=== PATIENT | male | born 1940 | race Caucasian/White ===

== ENCOUNTER 2023-10-10 15:02 | Observation (INO) | payer MEDICARE, OTHER ==
[2023-10-10] MEDS ORDERED: Sodium Chloride 0.9% 10 ML Syringe FLUSH PRN (15:06)
[2023-10-10 15:46] LABS: BLOOD UREA NITROGEN,BUN 29 mg/dL (7-18); BUN/CREATININE RATIO 15.3 (9-20); CALCIUM 8.2 mg/dL (8.6-10.2); CARBON DIOXIDE,CO2 24 mmol/L (21-32); CHLORIDE,CL 108 mmol/L (100-110); CREATININE 1.9 mg/dL (0.70-1.30); ESTIMATED GFR 35 mL/min (>60); GLUCOSE RANDOM 156 mg/dL (80-116); POTASSIUM,K 4.5 mmol/L (3.5-5.3); SODIUM,NA 141 mmol/L (135-145)
[2023-10-10 15:47] LABS: BASOPHILS ABSOLUTE AUTO 0.1 x10-3/uL (0.0-0.3); BASOPHILS PERCENT AUTO 1.1 % (0.3-3.8); EOSINOPHILS ABSOLUTE AUTO 0.2 x10-3/uL (0.0-0.6); EOSINOPHILS PERCENT AUTO 1.8 % (0.1-6.8); HEMATOCRIT 29.8 % (38.3-50.1); HEMOGLOBIN 9.9 g/dL (12.9-17.7); LYMPHOCYTES ABSOLUTE AUTO 3.5 x10-3/uL (0.5-4.5); LYMPHOCYTES PERCENT AUTO 31.4 % (15.8-45.3); MEAN CORPUSCULAR HEMOGLOBIN 27.9 pg (27.0-33.3); MEAN CORPUSCULAR HGB CONC 33.1 g/dL (28.7-35.3); MEAN CORPUSCULAR VOLUME 84.1 fL (80.8-98.7); MEAN PLATELET VOLUME 9.4 fL (6.7-11.0); MONOCYTES ABSOLUTE AUTO 0.7 x10-3/uL (0.0-1.2); MONOCYTES PERCENT AUTO 6.4 % (5.5-15.2); NEUTROPHILS ABSOLUTE AUTO 6.6 x10-3/uL (1.7-6.9); NEUTROPHILS PERCENT AUTO 59.3 % (40.3-71.8); PLATELET COUNT,PLT 186 x10(3)uL (117-477); RED BLOOD CELL COUNT 3.54 x10(6)uL (3.90-5.90); WHITE BLOOD CELL COUNT,WBC 11.1 x10-3/uL (3.2-10.1)
[2023-10-10 15:52] LABS: INR 1.07 (1.00-1.24); PTT,PARTIAL THROMBOPLSTIN TIME 23.1 SECONDS (24.4-33.2)
[2023-10-10 15:53] LABS: A/G RATIO 0.7; ALANINE AMINOTRANSFERASE,ALT 22 U/L (12-36); ALBUMIN 2.6 g/dL (3.2-4.6); ALKALINE PHOSPHATASE 119 IU/L (56-112); ASPARTATE AMNIOTRANSFERASE,AST 16 IU/L (5-25); BILIRUBIN TOTAL 0.3 mg/dL (0.1-1.3); PROTEIN TOTAL,TP 6.3 g/dL (6.0-8.0)
[2023-10-10] MEDS: Sodium Chloride 0.9% 1,000 ML IV SCH ×3 (15:55→22:34)
[2023-10-10] MEDS: Ondansetron 4 MG/2 ML SDV IVPUSH ONE (16:02)
[2023-10-10] MEDS ORDERED: Sodium Chloride 0.9% 1,000 ML IV SCH ×2 (17:30→19:15)
[2023-10-10] MEDS ORDERED: Acetaminophen 325 MG Tab PO PRN (19:40)
[2023-10-10] MEDS ORDERED: Ondansetron 4 MG/2 ML SDV IV PRN (19:40)
[2023-10-10] MEDS ORDERED: Sennosides/Docusate Sodium 50-8.6 MG Tab PO PRN (19:40)
[2023-10-10] MEDS ORDERED: Cyanocobalamin (Vitamin B12) 1,000 MCG Tab PO SCH (20:00)
[2023-10-10 20:36] VITALS: PULSE 67
[2023-10-10] MEDS ORDERED: Lidocaine 1% 5 ML VIAL INFILT ONE (20:43)
[2023-10-10] MEDS: atorvaSTATin 40 MG Tab PO SCH (22:00)
[2023-10-10] MEDS: Gabapentin 300 MG Cap PO SCH (22:01)
[2023-10-10] MEDS: Losartan 50 MG Tab PO SCH (22:01)
[2023-10-10] MEDS: Donepezil 5 MG Tab PO SCH (22:01)
[2023-10-10 22:02] VITALS: BP 134/60
[2023-10-10] MEDS: Carboxymethylcellulose 0.5%/Glycerin 0.9% Ophth Soln 15 ML Bottle EYEBOTH SCH (23:22)
[2023-10-11] MEDS ORDERED: Non-Formulary Medication 1 Each (Dapagliflozin Propanediol [Farxiga] 10 MG Tablet) PO SCH (09:00)
[2023-10-11] MEDS ORDERED: Non-Formulary Medication 1 Each (Insulin Degludec [Tresiba Flextouch U-100] 100 UNIT/ML Pe SQ SCH (09:00)
[2023-10-11] MEDS ORDERED: Non-Formulary Medication 1 Each (Insulin Detemir [Levemir] 100 UNIT/ML Ml) SQ SCH (09:00)
[2023-10-11] MEDS ORDERED: Psyllium Husk Powder Sugar Free 5.85 GM Packet PO SCH (09:00)
[2023-10-11] MEDS ORDERED: Aspirin 81 MG Tab.EC PO SCH (09:00)
[2023-10-11] MEDS ORDERED: amLODIPine 2.5 MG Tab PO SCH (09:00)
[2023-10-11] MEDS ORDERED: Empagliflozin 25 MG Tab PO SCH (09:00)
[2023-10-11] MEDS ORDERED: Psyllium Husk Powder Sugar Free 5.85 GM Packet PO PRN (11:10)
[2023-10-11] MEDS ORDERED: Calcium Carbonate 500 MG Tab.Chew PO PRN (11:12)
[2023-10-11 11:13] LABS: BASOPHILS ABSOLUTE AUTO 0.1 x10-3/uL (0.0-0.3); BASOPHILS PERCENT AUTO 0.6 % (0.3-3.8); EOSINOPHILS ABSOLUTE AUTO 0.1 x10-3/uL (0.0-0.6); EOSINOPHILS PERCENT AUTO 0.9 % (0.1-6.8); HEMATOCRIT 23.8 % (38.3-50.1); HEMOGLOBIN 7.9 g/dL (12.9-17.7); LYMPHOCYTES ABSOLUTE AUTO 1.9 x10-3/uL (0.5-4.5); LYMPHOCYTES PERCENT AUTO 21.7 % (15.8-45.3); MEAN PLATELET VOLUME 9.4 fL (6.7-11.0); MONOCYTES ABSOLUTE AUTO 0.5 x10-3/uL (0.0-1.2); MONOCYTES PERCENT AUTO 5.9 % (5.5-15.2); NEUTROPHILS ABSOLUTE AUTO 6.4 x10-3/uL (1.7-6.9); NEUTROPHILS PERCENT AUTO 70.9 % (40.3-71.8); PLATELET COUNT,PLT 117 x10(3)uL (117-477); RED BLOOD CELL COUNT 2.81 x10(6)uL (3.90-5.90); RED CELL DISTRIBUTION WIDTH 15.2 % (12.4-15.0)
[2023-10-11 11:14] LABS: BLOOD UREA NITROGEN,BUN 32 mg/dL (7-18); CARBON DIOXIDE,CO2 25 mmol/L (21-32); CHLORIDE,CL 109 mmol/L (100-110); GLUCOSE RANDOM 157 mg/dL (80-116); POTASSIUM,K 4.5 mmol/L (3.5-5.3); SODIUM,NA 141 mmol/L (135-145)
[2023-10-11 11:15] LABS: A/G RATIO 0.8; ALANINE AMINOTRANSFERASE,ALT 20 U/L (12-36); ALBUMIN 2.5 g/dL (3.2-4.6); ALKALINE PHOSPHATASE 108 IU/L (56-112); ASPARTATE AMNIOTRANSFERASE,AST 16 IU/L (5-25); BILIRUBIN TOTAL 0.3 mg/dL (0.1-1.3); CALCIUM 7.6 mg/dL (8.6-10.2); EST CRCL DRUG DOSING (CG) 34.62 mL/min; ESTIMATED GFR 33 mL/min (>60); PROTEIN TOTAL,TP 5.8 g/dL (6.0-8.0)
[2023-10-11] MEDS ORDERED: Heparin Sodium/0.45% NaCl 25,000 UNITS/500 ML BAG IV SCH (11:15)
[2023-10-11] MEDS ORDERED: Calcium Carbonate 500 MG Tab.Chew ONE (11:59)
[2023-10-11] MEDS ORDERED: Insulin Glargine,Human Rec. Analog 100 Units/ML 3 ML Pen SUBCUT ONE (14:08)
[2023-10-11] MEDS ORDERED: Insulin Lispro 100 Unit/ML 3 ML KwikPen SUBCUT ONE (14:08)
[2023-10-11] MEDS: Carvedilol 3.125 MG Tab PO SCH (15:19)
[2023-10-11] MEDS: Insulin Lispro 100 Unit/ML 3 ML KwikPen SUBCUT SCH (15:19)
[2023-10-11] MEDS: Pantoprazole 40 MG Tab.CR PO SCH (15:20)
[2023-10-11] MEDS: Cholecalciferol (Vitamin D3) 25 MCG Tab PO SCH (15:20)
[2023-10-11] MEDS: Saccharomyces Boulardii (Probiotic) 250 MG Cap PO SCH (15:20)
[2023-10-11] MEDS: Insulin Glargine,Human Rec. Analog 100 Units/ML 3 ML Pen SUBCUT SCH (15:20)
[2023-10-11] MEDS: Aspirin 81 MG Tab.Chew PO ONE (15:21)
[2023-10-11] MEDS: Heparin Sodium 5,000 Units/ML Vial IVPUSH ONE (15:21)
[2023-10-11] MEDS: Allopurinol 100 MG Tab PO SCH (15:21)
[2023-10-11] MEDS: TRINTELLIX 5 MG PO SCH (15:21)
[2023-10-11] MEDS ORDERED: amLODIPine 10 MG Tab PO SCH (21:00)
[2023-10-11] MEDS ORDERED: Loratadine 10 MG Tab PO SCH (21:00)
== END 2023-10-11 14:09 ==
LOC: FB.ED 15:02 → FB.MS 20:42
PROVIDERS: ADMIT Emergency Medicine; ATTEND Family Medicine
DX: S01.81XA Laceration without foreign body of other part of head, initial encounter (principal); E11.22 Type 2 diabetes mellitus with diabetic chronic kidney disease; I12.9 Hypertensive chronic kidney disease with stage 1 through stage 4 chronic kidney disease, or unspecified chronic kidney disease; N18.32 Chronic kidney disease, stage 3b; I25.110 Atherosclerotic heart disease of native coronary artery with unstable angina pectoris; D64.9 Anemia, unspecified; I25.2 Old myocardial infarction; W18.30XA Fall on same level, unspecified, initial encounter; Z95.1 Presence of aortocoronary bypass graft
CPT/HCPCS: 12002; 36415; 70450; 71045; 72125; 80053; 82947; 84484; 85025; 85610; 85730; 93005; 96361; 96374; 99285; A9270; G0378; J1644; J1815; J2405; J7030; 99222; 99238

== ENCOUNTER 2024-01-06 20:41 | Emergency (ER) | payer MEDICARE, OTHER ==
[2024-01-06 21:15] LABS: BASOPHILS ABSOLUTE AUTO 0.1 x10-3/uL (0.0-0.3); BASOPHILS PERCENT AUTO 0.8 % (0.3-3.8); EOSINOPHILS ABSOLUTE AUTO 0.1 x10-3/uL (0.0-0.6); EOSINOPHILS PERCENT AUTO 1.7 % (0.1-6.8); HEMATOCRIT 38.9 % (38.3-50.1); HEMOGLOBIN 13.2 g/dL (12.9-17.7); LYMPHOCYTES ABSOLUTE AUTO 1.6 x10-3/uL (0.5-4.5); LYMPHOCYTES PERCENT AUTO 24.2 % (15.8-45.3); MEAN CORPUSCULAR HEMOGLOBIN 29.3 pg (27.0-33.3); MEAN CORPUSCULAR VOLUME 86.3 fL (80.8-98.7); MEAN PLATELET VOLUME 9.5 fL (6.7-11.0); MONOCYTES ABSOLUTE AUTO 0.4 x10-3/uL (0.0-1.2); MONOCYTES PERCENT AUTO 6.1 % (5.5-15.2); NEUTROPHILS ABSOLUTE AUTO 4.5 x10-3/uL (1.7-6.9); NEUTROPHILS PERCENT AUTO 67.2 % (40.3-71.8); PLATELET COUNT,PLT 102 x10(3)uL (117-477); RED BLOOD CELL COUNT 4.51 x10(6)uL (3.90-5.90); RED CELL DISTRIBUTION WIDTH 15.8 % (12.4-15.0); WHITE BLOOD CELL COUNT,WBC 6.6 x10-3/uL (3.2-10.1)
[2024-01-06 21:16] LABS: BLOOD UREA NITROGEN,BUN 29 mg/dL (7-18); BUN/CREATININE RATIO 19.3 (9-20); CALCIUM 8.7 mg/dL (8.6-10.2); CARBON DIOXIDE,CO2 26 mmol/L (21-32); CHLORIDE,CL 104 mmol/L (100-110); CREATININE 1.5 mg/dL (0.70-1.30); ESTIMATED GFR 46 mL/min (>60); GLUCOSE RANDOM 235 mg/dL (80-116); POTASSIUM,K 3.9 mmol/L (3.5-5.3); SODIUM,NA 140 mmol/L (135-145)
[2024-01-06 21:22] LABS: A/G RATIO 0.8; ALANINE AMINOTRANSFERASE,ALT 42 U/L (12-36); ALBUMIN 3.3 g/dL (3.2-4.6); ALKALINE PHOSPHATASE 151 IU/L (56-112); ASPARTATE AMNIOTRANSFERASE,AST 25 IU/L (5-25); BILIRUBIN TOTAL 0.3 mg/dL (0.1-1.3); PROTEIN TOTAL,TP 7.4 g/dL (6.0-8.0)
[2024-01-06] MEDS: Metoprolol Tartrate 5 MG/5 ML SDV IVPUSH ONE (21:59)
[2024-01-06 22:06] VITALS: BP 203/108; PULSE 90
== END 2024-01-06 23:47 | disposition home or self-care (01) ==
LOC: FB.ED 20:41
DX: J44.9 Chronic obstructive pulmonary disease, unspecified (principal); S01.511A Laceration without foreign body of lip, initial encounter; I10 Essential (primary) hypertension; E10.9 Type 1 diabetes mellitus without complications; Z95.1 Presence of aortocoronary bypass graft; Z79.899 Other long term (current) drug therapy; Z79.2 Long term (current) use of antibiotics; Z79.4 Long term (current) use of insulin; Z79.82 Long term (current) use of aspirin; Z79.1 Long term (current) use of non-steroidal anti-inflammatories (NSAID); W26.8XXA Contact with other sharp object(s), not elsewhere classified, initial encounter
CPT/HCPCS: 36415; 80053; 84484; 85025; 93005; 93010; 96374; 99284; 99284-25; J3490

== ENCOUNTER 2024-01-09 20:43 | Emergency (ER) | payer MEDICARE, OTHER ==
[2024-01-09] MEDS ORDERED: Sodium Chloride 0.9% 10 ML Syringe FLUSH PRN (20:47)
[2024-01-09] MEDS: Albuterol/Ipratropium 3.0-0.5 MG/3 ML Neb Soln NEB ONE (21:02)
[2024-01-09 21:18] LABS: BASOPHILS ABSOLUTE AUTO 0.1 x10-3/uL (0.0-0.3); BASOPHILS PERCENT AUTO 0.8 % (0.3-3.8); EOSINOPHILS ABSOLUTE AUTO 0.1 x10-3/uL (0.0-0.6); EOSINOPHILS PERCENT AUTO 1.5 % (0.1-6.8); HEMATOCRIT 36.2 % (38.3-50.1); LYMPHOCYTES ABSOLUTE AUTO 1.3 x10-3/uL (0.5-4.5); LYMPHOCYTES PERCENT AUTO 21.3 % (15.8-45.3); MEAN CORPUSCULAR HEMOGLOBIN 28.7 pg (27.0-33.3); MEAN CORPUSCULAR VOLUME 87.1 fL (80.8-98.7); MEAN PLATELET VOLUME 9.9 fL (6.7-11.0); MONOCYTES ABSOLUTE AUTO 0.5 x10-3/uL (0.0-1.2); MONOCYTES PERCENT AUTO 7.3 % (5.5-15.2); NEUTROPHILS ABSOLUTE AUTO 4.3 x10-3/uL (1.7-6.9); NEUTROPHILS PERCENT AUTO 69.1 % (40.3-71.8); PLATELET COUNT,PLT 92 x10(3)uL (117-477); RED BLOOD CELL COUNT 4.16 x10(6)uL (3.90-5.90); RED CELL DISTRIBUTION WIDTH 15.7 % (12.4-15.0); WHITE BLOOD CELL COUNT,WBC 6.3 x10-3/uL (3.2-10.1)
[2024-01-09 21:19] LABS: BLOOD UREA NITROGEN,BUN 26 mg/dL (7-18); BUN/CREATININE RATIO 15.3 (9-20); CALCIUM 8.2 mg/dL (8.6-10.2); CARBON DIOXIDE,CO2 26 mmol/L (21-32); CHLORIDE,CL 105 mmol/L (100-110); CREATININE 1.7 mg/dL (0.70-1.30); ESTIMATED GFR 40 mL/min (>60); GLUCOSE RANDOM 190 mg/dL (80-116); SODIUM,NA 141 mmol/L (135-145)
[2024-01-09 21:25] LABS: A/G RATIO 0.8; ALANINE AMINOTRANSFERASE,ALT 36 U/L (12-36); ALBUMIN 2.9 g/dL (3.2-4.6); ALKALINE PHOSPHATASE 129 IU/L (56-112); ASPARTATE AMNIOTRANSFERASE,AST 29 IU/L (5-25); BILIRUBIN TOTAL 0.3 mg/dL (0.1-1.3); PROTEIN TOTAL,TP 6.6 g/dL (6.0-8.0)
[2024-01-09 21:37] LABS: TROPONIN I 3937.5 pg/mL (4.0-60.3)
[2024-01-09] MEDS: Clopidogrel 75 MG Tab PO ONE (21:50)
[2024-01-09] MEDS: Aspirin 81 MG Tab.Chew PO ONE (21:50)
[2024-01-09] MEDS: Metoprolol Tartrate 5 MG/5 ML SDV IVPUSH ONE (21:51)
[2024-01-09] MEDS: Nitroglycerin 0.4 MG Tab.SL SL PRN (22:10)
[2024-01-09] MEDS: Heparin Sodium 5,000 Units/ML Vial IVPUSH ONE (23:06)
[2024-01-09] MEDS: Heparin Sodium/0.45% NaCl 25,000 UNITS/500 ML BAG IV SCH (23:07)
[2024-01-09] MEDS: Morphine 2 MG/ML SYRINGE IVPUSH ONE (23:43)
[2024-01-10 00:34] VITALS: BP 164/97; PULSE 114
== END 2024-01-10 00:30 ==
LOC: FB.ED 20:43
DX: I21.4 Non-ST elevation (NSTEMI) myocardial infarction (principal); I12.9 Hypertensive chronic kidney disease with stage 1 through stage 4 chronic kidney disease, or unspecified chronic kidney disease; N18.9 Chronic kidney disease, unspecified; I25.10 Atherosclerotic heart disease of native coronary artery without angina pectoris; E11.22 Type 2 diabetes mellitus with diabetic chronic kidney disease; Z95.1 Presence of aortocoronary bypass graft; Z79.899 Other long term (current) drug therapy; Z79.4 Long term (current) use of insulin; Z79.2 Long term (current) use of antibiotics; Z79.82 Long term (current) use of aspirin; Z79.1 Long term (current) use of non-steroidal anti-inflammatories (NSAID)
CPT/HCPCS: 36415; 71045; 80053; 83880; 84484; 85025; 93005; 93010; 96365; 96375; 99285; 99285-25; A9270-GY; J1644; J2270; J3490; J7620; U0002

== ENCOUNTER 2025-03-01 21:44 | Emergency (ER) | payer MEDICARE, OTHER ==
[2025-03-01] MEDS ORDERED: Sodium Chloride 0.9% 10 ML Syringe FLUSH PRN (21:57)
[2025-03-01 22:21] LABS: MEAN PLATELET VOLUME 9.1 fL (6.7-11.0); PLATELET COUNT,PLT 86 x10(3)uL (117-477); RED BLOOD CELL COUNT 4.28 x10(6)uL (3.90-5.90); RED CELL DISTRIBUTION WIDTH 16.6 % (12.4-15.0); WHITE BLOOD CELL COUNT,WBC 5.8 x10-3/uL (3.2-10.1)
[2025-03-01 22:29] LABS: BLOOD UREA NITROGEN,BUN 28 mg/dL (7-18); CARBON DIOXIDE,CO2 23 mmol/L (21-32); CHLORIDE,CL 103 mmol/L (100-110); CREATININE 1.6 mg/dL (0.70-1.30); EST CRCL DRUG DOSING (CG) 41.81 mL/min; ESTIMATED GFR 42 mL/min (>60); GLUCOSE RANDOM 198 mg/dL (80-116); POTASSIUM,K 4.5 mmol/L (3.5-5.3); SODIUM,NA 136 mmol/L (135-145)
[2025-03-01 22:35] LABS: A/G RATIO 0.8; ALANINE AMINOTRANSFERASE,ALT 38 U/L (12-36); ASPARTATE AMNIOTRANSFERASE,AST 27 IU/L (5-25); BILIRUBIN TOTAL 0.5 mg/dL (0.1-1.3); PROTEIN TOTAL,TP 6.9 g/dL (6.0-8.0)
[2025-03-01 22:39] LABS: BAND PERCENT MAN 2 % (0-6); EOSINOPHILS PERCENT MAN 3 % (0-5); LYMPHOCYTES PERCENT MAN 15 % (13-37); MONOCYTES PERCENT MAN 7 % (4-12); SEG NEUTROPHILS PERCENT MAN 73 % (46-82)
[2025-03-01 22:55] VITALS: PULSE 86
[2025-03-01 23:02] LABS: APPEARANCE,URINE SLIGHTLY CLOUDY (CLEAR); GLUCOSE,URINE >1000 mg/dL (NORMAL); OCCULT BLOOD,URINE TRACE (NEGATIVE)
[2025-03-01 23:04] LABS: SQUAMOUS EPITHELIAL CELLS,UR FEW (NS,R,O)
[2025-03-01 23:52] VITALS: BP 169/78
== END 2025-03-02 00:03 | disposition home or self-care (01) ==
LOC: FB.ED 21:44
DX: R19.7 Diarrhea, unspecified (principal); E86.0 Dehydration; I10 Essential (primary) hypertension; I25.10 Atherosclerotic heart disease of native coronary artery without angina pectoris; E11.9 Type 2 diabetes mellitus without complications; E66.9 Obesity, unspecified; Z79.82 Long term (current) use of aspirin; Z79.899 Other long term (current) drug therapy; Z79.4 Long term (current) use of insulin; Z79.84 Long term (current) use of oral hypoglycemic drugs; Z95.1 Presence of aortocoronary bypass graft; Z68.26 Body mass index [BMI] 26.0-26.9, adult
CPT/HCPCS: 36415; 80053; 81001; 83605; 83735; 84484; 85025; 86140; 93005; 96360; 99285-25; J7040